=== PATIENT | female | born 1960 | race Caucasian/White ===

== ENCOUNTER 2016-11-29 14:31 | Observation (INO) | payer MEDICAID ==
[2016-11-29 14:57] LABS: BASOPHIL# 0.1 X 10^3uL (0.0-0.1); BASOPHILS 0.9 % (0.0-2.0); EOSINOPHILS 0.9 % (0.0-6.0); EOSINOPHILS# 0.1 X 10^3uL (0.0-0.4); HEMATOCRIT 48.3 % (36.0-48.0); HEMOGLOBIN 16.9 g/dL (12.0-16.0); LYMPHOCYTES 21.4 % (20.0-40.0); LYMPHOCYTES# 1.8 X 10^3uL (0.8-3.8); MEAN CELL VOLUME 94.2 fL (80.0-100.0); MEAN PLATELET VOLUME 8.3 fL (7.4-10.4); MONOCYTES 7.2 % (2.0-10.0); MONOCYTES# 0.6 X 10^3uL (0.2-1.0); NEUTROPHILS 69.6 % (54.0-75.0); NEUTROPHILS# 5.6 X 10^3uL (2.6-6.7); PLATELET COUNT 266 X 10^3uL (130-440); RED BLOOD COUNT 5.13 X 10^6uL (4.20-6.10); WHITE BLOOD COUNT 8.2 X 10^3uL (3.9-10.7)
[2016-11-29] MEDS ORDERED: NITROGLYCERIN 0.4 MG TAB.SUBL SUBLINGUAL ONE (14:57)
[2016-11-29 15:00] LABS: BLOOD UREA NITROGEN 18 mg/dL (7-17); CALCIUM 9.7 mg/dL (8.4-10.2); CHLORIDE 101 mmol/L (98-107); CREATININE 0.7 mg/dL (0.5-1.0); EST GLOMERULAR FILTRATION RATE > 60 mL/min; GLUCOSE 98 mg/dL (70-100); MAGNESIUM 2.2 mg/dL (1.6-2.3); SODIUM 140 mmol/L (137-145)
--- NOTE | 2016-11-29 15:02 | RADIOLOGY REPORT ---
HISTORY: High blood pressure. COMPARISON: None. TECHNIQUE: Single frontal view of the chest. FINDINGS: The lungs are clear. Cardiac silhouette is normal in size. Pulmonary vasculature is within normal limits. There are no pleural effusions. IMPRESSION: No acute cardiopulmonary disease. Final Electronic Signature: This report was electronically signed by West Be MD, FACR on 11/29/2016 3:00 PM. roldan /
[2016-11-29 15:20] LABS: TROPONIN I < 0.012 ng/mL (0.00-0.034)
[2016-11-29] MEDS ORDERED: LORazepam 1 MG TABLET ONE (15:27)
[2016-11-29] MEDS ORDERED: ACETAMINOPHEN 325 MG TABLET PO PRN (15:49)
[2016-11-29] MEDS ORDERED: HOME MEDICATION LIST NEEDED 1 EA EACH MC ONE (15:49)
[2016-11-29] MEDS ORDERED: LORazepam 2 MG/ML INJ IV PRN (15:53)
[2016-11-29] MEDS ORDERED: NITROGLYCERIN 0.4 MG TAB.SUBL SUBLINGUAL PRN (15:53)
[2016-11-29] MEDS ORDERED: ALPRAZolam 0.5 MG TABLET PO PRN (17:15)
[2016-11-29] MEDS ORDERED: ALBUTEROL HFA 1 INH INHALER INHALATION PRN (17:15)
--- NOTE | 2016-11-29 17:43 | ER NURSING DOCUMENTATION ---
Nurse's Notes [facility] Name:Lea Barber Age:56 yrs Sex:Female :1960 Arrival Date:11/29/2016 Time:14:31 BedTrauma-C Private MD: Diagnosis:Chest Pain;Anxiety Reaction Presentation: 11/29 14:42 Acuity: KERI 2 lp 14:43 Presenting complaint: Patient states: presented to clinic and sent to ER after lp complaints of chest tightness and new left BBB on EKG. Transition of care: Home. 14:43 Method Of Arrival: Private Vehicle lp 14:48 Notified ED Physician of patient's arrival and CC Mike Lynn notified. ke Triage Assessment: 14:56 General: Appears in no apparent distress, Behavior is anxious, appropriate for age. ke Pain: Denies pain. 14:57 EENT: No deficits noted. Neuro: No deficits noted. Level of Consciousness is awake, ke alert, Oriented to person, place, time, event. Cardiovascular: Capillary refill < 3 seconds Heart tones S1 S2 present. Respiratory: Airway is patent Trachea midline Respiratory effort is even, unlabored, Respiratory pattern is regular, symmetrical, Breath sounds are clear. GI: Abdomen is flat, non- distended Bowel sounds present X 4 quads. Abd is soft and non tender X 4 quads. : No deficits noted. Derm: Skin is intact, Skin is dry, Skin is pale. Musculoskeletal: Circulation, motion, and sensation intact Capillary refill < 3 seconds Range of motion intact in all extremities. Historical: - Allergies: SULFA (SULFONAMIDES); - Home Meds: 1. citalopram oral 2. Trazodone Oral 3. Bupropion Oral 4. Alprazolam Oral 5. calcium 6. biotin oral 7. flax seed oil 8. iron 9. MTV 10. Vit D3 11. Proair 12. Lidoderm 13. cyanocobalamin (vitamin B-12) oral - PMHx: DEPRESSION; ANXIETY; ASTHMA; OBESITY; Ankle Sprain - : Acute, Left (October 11, 2014); - PSHx: TONSILLECTOMY; ADENOIDS; TUBAL LIGATION; Gastric Bypass 7 years ago; - Tetanus: < 10 years. - Ebola Screening: : Patient negative for fever greater than or equal to 101.5 degrees Fahrenheit, and additional compatible Ebola Virus Disease symptoms. Patient denies exposure to infectious person. Patient denies travel to an Ebola-affected area in the 21 days before illness onset. No symptoms or risks identified at this time. . - Immunization history: Pneumococcal vaccine status is unknown, Flu Vaccine unknown. - Social history: Smoking status: Patient uses tobacco products, light tobacco smoker. Screenin:59 Infectious Disease Risk None. Abuse screen: Denies threats or abuse. Denies injuries ke from another. Nutritional screening: No deficits noted. Assessment: 14:58 See Triage Assessment done by same RN. ke 15:18 Reassessment: Patient states feeling better. Pt. states she still feels anxious but ke chest tightness is improved. She is drumming her fingers and fidgeting, Ativan ordered and given. No other change in assessment.. Vital Signs: 14:44 BP 184 / 104; Pulse 101; Resp 20; Pulse Ox 90% on R/A; Weight 74.39 kg; Height 5 ft. 4 lp in. (162.56 cm); 14:49 Pulse 96 MON; Resp 24; Temp 97.8; Pulse Ox 94% on 2 lpm NC; Pain 0/10; ke 14:52 BP 147 / 100 (auto/); ke 15:03 BP 125 / 81; Pulse 102; Resp 18; Pulse Ox 94% on R/A; Pain 0/10; ke 15:29 Pulse 101 MON; Resp 18; Pulse Ox 97% on 2 lpm NC; Pain 0/10; ke 15:30 BP 133 / 91 (auto/); ke 16:06 BP 156 / 70 (auto/); ke 16:09 Pulse 88 MON; Resp 22; Pulse Ox 95% on 2 lpm NC; Pain 0/10; ke 16:30 BP 150 / 78 (auto/); ke 16:34 Pulse 96 MON; Resp 23; Pulse Ox 95% on 2 lpm NC; Pain 0/10; ke 17:01 BP 145 / 80 (auto/); ke 17:04 Pulse 97 MON; Resp 19; Pulse Ox 92% on 2 lpm NC; Pain 0/10; ke 17:30 BP 151 / 81 (auto/); ke 17:34 Pulse 87 MON; Resp 16; Pulse Ox 90% ; ke 14:44 Body Mass Index 28.15 (74.39 kg, 162.56 cm) lp 15:03 Feeling less chest pressure now ke ED Course: 14:32 Patient arrived in ED. am1 14:33 Emmett Mckeon MD is Attending Physician. adelaide 14:42 Faith Diaz, RN is Primary Nurse. lp 14:42 Triage completed. lp 14:49 Port Xray Completed. tt 14:52 CHEST; SINGLE VIEW [id number] In Process Unspecified. EDMS 14:57 Notified ED Physician of patient's arrival and chief complaint. Dr. Mckeon notified. ke 14:59 Inserted saline lock: 20 gauge in right forearm and blood collected. Oxygen Oxygen ke administration via nasal cannula @ 2L/min. 14:59 Valuables Remains with patient Patient has correct armband on for positive ke identification. Placed in gown. Bed in low position. Call light in reach. Side rails up X 1. Adult w/ patient. 15:05 EKG attached lp 15:06 EKG attached lp 15:46 Pippa Nguyen DO is Admitting Physician. adelaide 17:07 Awaiting RN assignment on floor. ke Administered Medications: 14:45 Drug: Nitroglycerin 0.4 mg; Route: Sublingual; ke 14:50 Drug: Aspirin 325 mg; Route: PO; ke 15:17 Follow up: Response: No change in condition ke 14:50 Drug: Nitroglycerin 0.4 mg; Route: Sublingual; ke 15:18 Follow up: Response: Blood pressure is lowered ke 15:17 Drug: Ativan 1 mg; Route: PO; ke 15:46 Follow up: Response: Anxiety decreased ke Intake: 15:48 PO: 100ml (Water); Total: 100ml. ke Outcome: 15:46 Decision to Admit by Provider. adelaide 17:39 Admitted to Med/surg accompanied by nurse, via wheelchair, with oxygen. ke 17:39 Condition: improved 17:39 Report given to Kristyn RN 17:39 Discharge instructions given to Instructed on need to admit 17:43 Patient left the ED. ke Signatures: Dispatcher [employer] EDNC Faith Diaz, RN RN Emmett Nascimento MD MD jm Moehring, Addie, Reg Reg am1 Juliette Lamas tt Milly Ritchie RN RN ke
--- NOTE | 2016-11-29 17:43 | ER PHYSICIAN DOCUMENTATION ---
Physician Documentation [facility] Name:Lea Barber Age:56 yrs Sex:Female :1960 Arrival Date:11/29/2016 Time:14:31 BedTrauma-C Private MD: Emmett Wilson Disposition: 11/29/16 15:46 Admit ordered for Pippa Nguyen. Preliminary diagnosis are Chest Pain, Anxiety Reaction. - Bed requested for Medical/Surgical. - Condition is Fair. - Problem is new. - Symptoms have improved. 23 HR OBS Yes HPI: 11/29 15:00 This 56 yrs old Female presents to ER via Private Vehicle with complaints of jm High Blood Pressure. 15:00 The patient has elevated blood pressure and discovered this at a physician's office, jm sent to clinic for eval of elevated BP, then sent to ER b/c pt had a LBBB and c/o of some chest tightness. . Onset: The symptom(s)/episode began/occurred today. Modifying factors: The symptoms are aggravated by stress, anxiety . Associated signs and symptoms: Pertinent positives: anxiety, Pertinent negatives: dizziness, dyspnea, headache, lightheadedness, nausea, visual changes, vomiting, weakness. Severity of symptoms: At its worst the blood pressure was 185 mm Hg. The patient has not experienced similar symptoms in the past. The patient has been recently seen by a physician: the patient's primary care provider, with similar presenting complaints, and was sent to the [facility] Emergency Department for further evaluation. As above. Historical: - Allergies: SULFA (SULFONAMIDES); - Home Meds: 1. citalopram oral 2. Trazodone Oral 3. Bupropion Oral 4. Alprazolam Oral 5. calcium 6. biotin oral 7. flax seed oil 8. iron 9. MTV 10. Vit D3 11. Proair 12. Lidoderm 13. cyanocobalamin (vitamin B-12) oral - PMHx: DEPRESSION; ANXIETY; ASTHMA; OBESITY; Ankle Sprain - : Acute, Left (October 11, 2014); - PSHx: TONSILLECTOMY; ADENOIDS; TUBAL LIGATION; Gastric Bypass 7 years ago; - Tetanus: < 10 years. - Ebola Screening: : Patient negative for fever greater than or equal to 101.5 degrees Fahrenheit, and additional compatible Ebola Virus Disease symptoms. Patient denies exposure to infectious person. Patient denies travel to an Ebola-affected area in the 21 days before illness onset. No symptoms or risks identified at this time. . - Immunization history: Pneumococcal vaccine status is unknown, Flu Vaccine unknown. - Social history: Smoking status: Patient uses tobacco products, light tobacco smoker. ROS: 15:11 Constitutional: Negative for fatigue, fever, malaise. jm 15:11 ENT: Negative for nasal discharge, rhinorrhea, sinus pain, sore throat. 15:11 Cardiovascular: Positive for chest pain, Negative for orthopnea, palpitations, paroxysmal nocturnal dyspnea. 15:11 Respiratory: Negative for cough, sputum production. 15:11 Abdomen/GI: Negative for abdominal pain, nausea, vomiting, diarrhea. 15:11 MS/extremity: Negative for swelling, tenderness. 15:11 Skin: Negative for puncture, rash, swelling. 15:11 Neuro: Negative for dizziness, acute changes. 15:11 Psych: Positive for anxiety, Negative for alcohol dependence. 15:11 Endocrine: 15:11 All other systems are negative. Exam: 15:12 Constitutional: The patient appears alert, awake, comfortable. jm 15:12 Constitutional: The patient appears anxious. 15:12 Eyes: Periorbital structures: appear normal, Extraocular movements: intact throughout. 15:12 ENT: Mouth: is normal, Voice: is normal. 15:12 Neck: Thyroid: appears normal, Trachea: is midline with no obvious abnormalities. 15:12 Chest/axilla: Inspection: normal, Palpation: is normal. 15:12 Cardiovascular: Rate: tachycardic, Rhythm: regular. 15:12 Respiratory: Respirations: normal, Breath sounds: are normal. 15:12 Back: Exam negative for pain, CVA tenderness, is absent. 15:12 Musculoskeletal/extremity: DVT Exam: No signs of deep vein thrombosis. Calves: are non-tender, have equal circumference. 15:12 Neuro: Orientation: is normal, Mentation: is normal, Memory: is normal. 15:12 Psych: Behavior/mood is pleasant, cooperative, anxious, Affect is calm. Vital Signs: 14:44 BP 184 / 104; Pulse 101; Resp 20; Pulse Ox 90% on R/A; Weight 74.39 kg; Height 5 ft. 4 lp in. (162.56 cm); 14:49 Pulse 96 MON; Resp 24; Temp 97.8; Pulse Ox 94% on 2 lpm NC; Pain 0/10; ke 14:52 BP 147 / 100 (auto/); ke 15:03 BP 125 / 81; Pulse 102; Resp 18; Pulse Ox 94% on R/A; Pain 0/10; ke 15:29 Pulse 101 MON; Resp 18; Pulse Ox 97% on 2 lpm NC; Pain 0/10; ke 15:30 BP 133 / 91 (auto/); ke 16:06 BP 156 / 70 (auto/); ke 16:09 Pulse 88 MON; Resp 22; Pulse Ox 95% on 2 lpm NC; Pain 0/10; ke 16:30 BP 150 / 78 (auto/); ke 16:34 Pulse 96 MON; Resp 23; Pulse Ox 95% on 2 lpm NC; Pain 0/10; ke 17:01 BP 145 / 80 (auto/); ke 17:04 Pulse 97 MON; Resp 19; Pulse Ox 92% on 2 lpm NC; Pain 0/10; ke 17:30 BP 151 / 81 (auto/); ke 17:34 Pulse 87 MON; Resp 16; Pulse Ox 90% ; ke 14:44 Body Mass Index 28.15 (74.39 kg, 162.56 cm) lp 15:03 Feeling less chest pressure now ke MDM: 14:33 Patient medically screened. jm 14:58 ED course: Spoke w Dr. Prabhakar in cards. He said the most common cause of a LBBB is HTN, jm which pt certainly has. Pt states she gets CP when she get anxious. Pt was just at her counselor's office to get Xanax refilled as she had been out for a day. Pt does not look like an DE as a glance. Dr. Prabhakar agrees that pt can get ASA and worked up in EP for this. We will admit for serial enzymes and Stress ECHO in the AM. . 15:05 EKG attached lp 15:06 EKG attached lp 15:42 Differential diagnosis: hypertensive crisis, HTN emergency, DE, new LBBB, NSTEMI, jm angina. Data reviewed: vital signs, nurses notes, old medical records, lab test result(s), EKG, radiologic studies, and as a result, I will admit patient. Test interpretation: by ED physician or midlevel provider: plain radiologic studies, ECG. Counseling: I had a detailed discussion with the patient and/or guardian regarding: the historical points, exam findings, and any diagnostic results supporting the discharge/admit diagnosis, lab results, radiology results, the need for further work-up and treatment in the hospital. ECG:. Medication response: The patient's symptoms have improved, nitro and ativan. Physician consultation: Pippa Nguyen DO regarding admission, and will see patient later today. Admission orders: after a detailed discussion of the patient's condition and case, the admit orders are written by me. 11/29 15:04 Order name: CBC AUTO DIF, MDIF/RMOR IF IND; Complete Time: 15:44 [facility] 11/29 15:20 Order name: BASIC METABOLIC PANEL; Complete Time: 15:44 [facility] 11/29 15:20 Order name: MAGNESIUM; Complete Time: 15:44 [facility] 11/29 15:20 Order name: TROPONIN I; Complete Time: 15:44 [facility] 11/29 21:11 Order name: TROPONIN I [facility] 11/30 03:29 Order name: CBC AUTO DIF, MDIF/RMOR IF IND [facility] 11/30 03:45 Order name: COMPREHENSIVE METABOLIC PANEL [facility] 11/30 03:45 Order name: LIPID PANEL [facility] 11/30 04:07 Order name: TROPONIN I [facility] 11/30 04:52 Order name: THYROID STIMULATING HORMONE [facility] 11/29 14:52 Order name: CHEST; SINGLE VIEW [id number] [facility] 11/29 15:04 Order name: CHEST; SING[place]IEW [id number]; Complete Time: 15:11 [facility] 11/29 14:40 Order name: 12-lead EKG; Complete Time: 14:43 11/29 14:40 Order name: Iv Saline Lock; Complete Time: 15:01 11/29 14:40 Order name: Place Patient On Monitor; Complete Time: 15:01 11/29 14:40 Order name: Pulse Ox Continuous; Complete Time: 15: 11/29 15:20 Order name: Oxygen; Complete Time: 15:20 ke EC:42 Rhythm is regular with Left bundle branch block. [place] interval is normal. QRS interval is jm normal. QT interval is normal. No Q waves. T waves are Normal. No ST changes noted. Dispensed Medications: 14:45 Drug: Nitroglycerin 0.4 mg; Route: Sublingual; ke 14:50 Drug: Aspirin 325 mg; Route: PO; ke 15:17 Follow up: Response: No change in condition ke 14:50 Drug: Nitroglycerin 0.4 mg; Route: Sublingual; ke 15:18 Follow up: Response: Blood pressure is lowered ke 15:17 Drug: Ativan 1 mg; Route: PO; ke 15:46 Follow up: Response: Anxiety decreased ke Signatures: Faith Diaz RN RN lp Meyer, John, MD MD jm Evens, Kerry, RN RN ke
[2016-11-29] MEDS ORDERED: ENOXAPARIN SODIUM 100 MG/ML SYR SUBCUT SCH (18:00)
[2016-11-29] MEDS ORDERED: ENALAPRILAT DIHYDRATE 1.25 MG/ML VIAL IV PRN (19:42)
[2016-11-29] MEDS: metoprolol SUCC ER 25 MG TABLET PO SCH (20:34)
[2016-11-29] MEDS ORDERED: traZODone HCL 50 MG TABLET PO SCH (21:00)
[2016-11-30 03:26] LABS: BASOPHIL# 0.1 X 10^3uL (0.0-0.1); BASOPHILS 1.1 % (0.0-2.0); EOSINOPHILS 2.4 % (0.0-6.0); EOSINOPHILS# 0.2 X 10^3uL (0.0-0.4); HEMATOCRIT 45.4 % (36.0-48.0); HEMOGLOBIN 15.3 g/dL (12.0-16.0); LYMPHOCYTES 33.5 % (20.0-40.0); LYMPHOCYTES# 2.1 X 10^3uL (0.8-3.8); MEAN CELL VOLUME 94.9 fL (80.0-100.0); MEAN CORPUS. HGB CONCENTRATION 33.6 g/dL (32.0-36.0); MEAN CORPUSCULAR HEMOGLOBIN 31.9 pg (29.0-35.0); MEAN PLATELET VOLUME 8.3 fL (7.4-10.4); MONOCYTES 9.4 % (2.0-10.0); MONOCYTES# 0.6 X 10^3uL (0.2-1.0); NEUTROPHILS 53.6 % (54.0-75.0); NEUTROPHILS# 3.3 X 10^3uL (2.6-6.7); PLATELET COUNT 237 X 10^3uL (130-440); RED BLOOD COUNT 4.78 X 10^6uL (4.20-6.10); RED CELL DISTRIBUTION WIDTH 13.4 % (11.5-14.5); WHITE BLOOD COUNT 6.3 X 10^3uL (3.9-10.7)
[2016-11-30 03:33] VITALS: RESP 16
[2016-11-30 03:42] LABS: A/G RATIO 1.4; ALBUMIN 3.8 g/dL (3.5-5.0); ALKALINE PHOSPHATASE 74 U/L (38-126); ALT 34 U/L (9-52); AST 25 U/L (14-36); BILIRUBIN, TOTAL 0.8 mg/dL (0.2-1.3); BLOOD UREA NITROGEN 23 mg/dL (7-17); CALCIUM 9.1 mg/dL (8.4-10.2); CALCULATED LDL 58 mg/dL; CHLORIDE 103 mmol/L (98-107); CHOL/HDL RATIO 2 (<4); CHOLESTEROL 185 mg/dL; CREATININE 0.9 mg/dL (0.5-1.0); EST GLOMERULAR FILTRATION RATE > 60 mL/min; GLUCOSE 96 mg/dL (70-100); HDL CHOLESTEROL 101 mg/dL; POTASSIUM 4.5 mmol/L (3.5-5.1); SODIUM 140 mmol/L (137-145); TOTAL PROTEIN 6.6 g/dL (6.3-8.2); TRIGLYCERIDES 132 mg/dL; VLDL CHOLESTEROL 26 mg/dL (<30)
[2016-11-30 04:06] LABS: TROPONIN I < 0.012 ng/mL (0.00-0.034)
[2016-11-30 04:51] LABS: THYROID STIMULATING HORMONE 2.22 uIU/mL (0.47-4.68)
--- NOTE | 2016-11-30 06:53 | HISTORY & PHYSICAL ---
DATE OF ADMISSION: 11/29/16 ATTENDING PHYSICIAN: Pippa Nguyen MD HISTORY OF PRESENT ILLNESS: The patient is a 56-year-old female whom I have not seen for over a year in clinic, who was a [place] this morning getting her medication refills and was noted to have an elevated blood pressure. They recommended that she follow up with her primary care physician to further evaluate. Patient came to clinic and was triaged. She denied any symptoms of concern at that time and blood pressure was noted to be 150s/90s. She was made an appointment for later that day. When I evaluated the patient in clinic this afternoon; however, her blood pressure was 164/85, but she did state that she was having some chest tightness that went up into her neck. Patient also mentioned that she had some flip popping and palpitation symptoms last week, which she just associated with her anxiety. Patient did have an EKG performed in the clinic which showed a new left bundle branch block and unfortunately I do not have a baseline EKG for the patient so she was transitioned to the Emergency Room for more immediate cardiac workup. During her stay in the Emergency Room, she was noted to have some initially elevated blood pressures 184/104 which did improve with 2 doses of Nitroglycerin. The Emergency Department physician did speak with on-call Cardiology and with the negative troponin and otherwise stable symptoms, they recommended that she be monitored here and be set up for a stress test in the morning so I was asked to admit her for observation this evening. PAST MEDICAL HISTORY 1. Anxiety and depression which she has managed at [facility]. 2. Insomnia. 3. She has a history of mild asthma which patient does admit that she has been using her inhaler more frequently at work. 4. History of gastric bypass and B12 deficiency not currently on supplementation. 5. Neck pain. 6. History of skin cancer. PAST SURGICAL HISTORY 1. Gastric bypass in 2007. 2. Tonsillectomy. 3. Tubal ligation. 4. Cataracts. 5. Skin cancer. SOCIAL HISTORY: Patient is . She has children here in town. She is currently a smoker and she has been working at [employer]. She lives alone with a dog. FAMILY HISTORY: Father with diabetes mellitus. Mother with history of fibromyalgia and breast cancer. Sister is related to sepsis and hepatitis C. MEDICATIONS Citalopram 20 mg daily. Trazadone 100 mg 1-2 p.o. q.h.s. Bupropion XL 150 mg. Alprazolam 1 mg as needed. Pro Air 2 puffs inhaled every 4 hours as needed. ALLERGIES: Sulfa. REVIEW OF SYSTEMS GENERAL: Patient states that she had been feeling stressed, some increased anxiety, mainly related to her current job she does not like and in fact did have a new job interview this afternoon and was likely nervous for this. HEENT: She denies any headache. No visual changes. No sore throat. CARDIOVASCULAR: Patient does state that she had chest tightness, this is now improved, and she admits to some palpitations and abnormal pressure sensations on and off for the last week. She also states that prior to her gastric bypass, she was on multiple medications for hypertension, and has been able to discontinue these with weight loss. RESPIRATORY: Patient has mild asthma, which she admits to having to use her inhaler. More frequently recently related to exertion at work. Denies any shortness of breath right now. ABDOMEN: She denies any nausea, vomiting or diarrhea. MUSCULOSKELETAL: Patient has some chronic intermittent neck pain. She also has pain in her left leg from her hip down to her knee. Patient states that she was going to make a follow up visit for this. EXTREMITIES: She denies any swelling. PSYCHIATRIC: Patient is anxious. She said her mood has been somewhat stable but she has had increased related to job and work stressors. PHYSICAL EXAMINATION VITAL SIGNS: Blood pressure 184/104 in the Emergency Room down to 156/70, pulse 88, respiratory rate 22, 95% on 2 liters. GENERAL: Patient appears anxious but in no acute distress. She was somewhat tearful when I mentioned to her that she was going to be taken to the Emergency Room and again tearful when I discussed with her that we were going to admit her overnight for observation. HEENT: Patient wears glasses. Conjunctivae are clear. Oropharynx is moist mucous membranes. NECK: No jugular venous distention noted. RESPIRATORY: Clear to auscultation bilaterally. Do not appreciate any wheezing. CARDIAC: Patient does have S1, S2, question of prominent S2 versus other irregularity, this does seem to be slightly different than her previous exam, although of note, patient has not been seen for over a year. ABDOMEN: Soft, nontender, nondistended. EXTREMITIES: No edema. Moves arms and legs equally. PSYCHIATRIC: Alert and oriented x3, anxious but reasonable and easily calmed. LABORATORY: CBC which showed a white count of 8.2, hemoglobin and hematocrit 16.9 and 48.3, platelets 266. A BMP showed sodium 140, potassium 4.0, chloride 101, bicarb 26, BUN 18, creatinine 0.7, glucose of 98, calcium 9.7, magnesium 2.2, troponin at 14:40 was less than 0.012. EKG showed a new left bundle branch block. Chest x-ray showed no acute changes. In the Emergency Room shew as provided with nitroglycerin 0.4 mg x1, aspirin 325 and Ativan 1 mg. ASSESSMENT/PLAN: This is a 56-year-old female with a history of anxiety and depression, presented to clinic with hypertension, chest pressure and found to have an abnormal EKG, transitioned to further workup in the Emergency Room and now here is here for hospital admission. 1. Abnormal EKG. Patient was found to have new left bundle branch block with some questionable ischemic changes, although hard to determine with her new left bundle. Patient did have chest tightness, thus was transitioned to the Emergency Room. Initial troponin was negative, and she denies any significant chest tightness at this time. Emergency Room physician did speak with on-call Cardiology and was recommended further observation admission, rule out ACS and stress echocardiogram with Cardiology consult tomorrow. I did review with patient in detail, that if any changes, she may need more urgent cardiac intervention. Was given aspirin and dose of lovenox. Does have Nitroglycerin available, and is currently on oxygen. 2. Chest tightness: This could be most likely multifactorial including her underlying anxiety. Denies any symptoms at this time, but has been given Ativan in the Emergency Room. Will continue to rule out ACS and monitor for any return of symptoms. 3. Hypertension: Patient with no hypertensive history in our clinic, although prior to her gastric bypass, she admits today that she was on 3-4 medications to control blood pressure. She has had about a 15 pound weight gain since her low of gastric bypass, which could be enough to cause some need for antihypertensive. Will continue to monitor and likely need to transition for some home medications. Await Cardiology input. 4. Anxiety: Patient is managed by [facility] in regards to multiple psychiatric medications. Will continue these while she is here, except transition Alprazolam for Lorazepam as needed. 5. Asthma: Patient does have history of asthma and admits to increase use of her inhaler. She also is a smoker. Will need further evaluation, discussion as an outpatient. 6. Leg pain: Patient again nonchalantly brought this up during review of systems. I have recommended her to follow up with me in clinic. Of note, patient did have a past history of positive health screening for positive SUNNY, but had a negative arterial ultrasound in 2013. 7. Polycythemia: This could be multifactorial including dehydration or her underlying respiratory issues. Her hemoglobin and hematocrit was normal in April 2015, which is the last CBC I have available for patient. Will repeat in the morning to monitor. May need further pulmonary workup. 8. Deep vein thrombosis prophylaxis: Patient is somewhat low risk. Has been given an aspirin in the Emergency Room. Will use SCDs at this time. 9. Disposition: Pending further cardiac monitoring and workup. 10. Transition of care: I have admitted patient tonaugust. I will transition care to Dr. Elisha kim, but I am out of the office tomorrow and thankfully Dr. Hoyos or Dr. Tello will help cover patient for me. Copies to: Dewey MANZANARES
--- NOTE | 2016-11-30 08:40 | DC SUMMARY: IM Note ---
Discharge Summary: IM/Peds Provider: Date of Admission: 11/29/16 Admitting Provider: CHRISTY MENDOSA Attending Provider: CHRISTY MENDOSA Discharging Provider: BROOKS ONEIL MD Primary Care Provider: Discharge Date: 11/30/16 - Diagnosis (1) Atypical chest pain Status: Acute (2) LBBB (left bundle branch block) Status: Acute (3) Hypertension, benign Status: Acute (4) Asthma, mild intermittent, well-controlled Status: Acute (5) Depression, controlled Status: Acute (6) Anxiety Status: Acute Hospital Course: See history and physical. Admitted for atypical chest pain with left bundle branch block on EKG. No further chest pain after admission, and her discomfort was typical for her anxiety. No exertional discomfort. Cardiac enzymes negative times 3. EKG without change. Seen by cardiology. Echocardiogram done. Without high risk factors, chemical stress nuclear study can be done in the outpatient setting. Precautions were reviewed. She will be discharged on low-dose aspirin, metoprolol. She will continue with her psychiatric medications. She will return to the emergency department if further chest discomfort. With regard to other items in the differential diagnosis, chest x-ray negative for focal or acute process. No symptoms of infection. Presentation is not consistent with pulmonary embolus. Smoking cessation has been recommended. Time spent discussing smoking cessation with patient: 3 to 10 minutes - Time Spent with Patient Total time spent providing and/or coordinating discharge services: Time with patient DS: Less than 30 minutes Discharge - Patient/Caregiver Discharge Instructions Activity Level: Day-to-day activities. No strenuous exercise. Diet: Cardiac. Post gastric bypass. Additional Instructions: Chemical nuclear stress test ordered by cardiology for next week. Minimize smoking, and quit as soon as you are able. Follow up: Doug IVORY [Other] - 12/04/16 12:15 pm (For Chemical Stress Test on 12/04 @ 12:15 Go to main it desktop support technician at hospital to check-in.) CHRISTY MENDOSA DO [Primary Care Provider] - 12/14/16 1:30 pm KJ RAYO MD [MD] - 7 Days Overall discharge status: patient is progressing back to baseline Print Language: CITIZEN OF [place] Home Medications: metoprolol SUCC ER [Toprol Xl*] 25 mg PO DAILY #30 tablet Care Plan Goals: Call 911 Call 911 if any of these occur: * A change in the type of pain: if it feels different, becomes more severe, lasts longer, or begins to spread into your shoulder, arm, neck, jaw or back * Shortness of breath or increased pain with breathing * Weakness, dizziness, or fainting * Rapid heart beat * Crushing sensation in your chest When to seek medical advice Call your healthcare provider right away if any of the following occur: * Cough with dark colored sputum (phlegm) or blood * Fever of 100.4F (38C) or higher, or as directed by your healthcare provider * Swelling, pain or redness in one leg * Shortness of breath Disposition: HOME, SELF-CARE Discharge Summary Data - Medication History Medication History: Home Medications ALPRAZolam [Xanax*] 1 mg PO TID PRN 11/29/16 Albuterol Hfa [Proventil Inhaler*] 1 puff INHALATION Q4H PRN 11/29/16 Biotin 1,000 mcg PO DAILY 11/29/16 Calcium Carbonate [Calcium] 1 tab PO DAILY 11/29/16 Cholecalciferol [Vitamin D*] 1,000 unit PO DAILY 11/29/16 Citalopram Hydrobromide [Celexa*] 20 mg PO DAILY 11/29/16 Cyanocobalamin [Vitamin B-12*] 1,000 mcg IM [id number] 11/29/16 Ferrous Sulfate [Ferrous Sulfate*] 1 tab PO DAILY 11/29/16 Flaxseed Oil 1,000 mg PO DAILY 11/29/16 Lidocaine 5% [Lidoderm 5%*] 1 patch TOPICAL DAILY 11/29/16 Multivitamins,Therapeutic [Thera Multivitamin*] 1 tab PO DAILY 11/29/16 buPROPion HCL [Wellbutrin Xl] 150 mg PO DAILY 11/29/16 traZODone HCL [Trazodone HCl*] 100 - 200 mg PO HS 11/29/16 Acetaminophen [Tylenol*] 650 mg PO Q6H PRN #0 tablet 11/30/16 aspirin EC [Aspirin EC*] 81 mg PO DAILY tablet 11/30/16 metoprolol SUCC ER [Toprol Xl*] 25 mg PO DAILY #30 tablet 11/30/16 Inpatient Medications 11/29/16 17:15 ALPRAZolam [Xanax] 1 mg PO TID PRN Albuterol Hfa [Proventil Hfa Inhaler] 1 - 2 inh INHALATION Q4H PRN 11/29/16 19:42 Enalaprilat Dihydrate [Vasotec] 0.625 mg IV Q6H PRN 11/29/16 20:00 metoprolol SUCC ER [topROL XL] 25 mg PO DAILY 11/29/16 21:00 traZODone HCL [Desyrel] 100 - 200 mg PO HS 11/30/16 09:00 Citalopram Hydrobromide [CeleXA] 20 mg PO DAILY aspirin EC [Ecotrin 81 mg] 81 mg PO DAILY buPROPion XL DAILY [Wellbutrin Xl Daily] 150 mg PO DAILY Procedures and tests throughout hospitalization: Completed Lab Orders 11/29/16 20:40 TROPONIN I [CHEM] Stat 11/30/16 03:03 CBC AUTO DIF, MDIF/RMOR IF IND [HEM] AMDRAW COMPREHENSIVE METABOLIC PANEL [CHEM] AMDRAW LIPID PANEL [CHEM] AMDRAW TROPONIN I [CHEM] Routine TSH [THYROID STIMULATING HORMONE] [CHEM] AMDRAW Pending Orders 11/29/16 17:01 VTE Prophylaxis Scoring/ Ordering Routine Sequential Compression Device WHILE IN BED 11/29/16 17:15 ALPRAZolam [Xanax] 1 mg PO TID PRN Albuterol Hfa [Proventil Hfa Inhaler] 1 - 2 inh INHALATION Q4H PRN 11/29/16 18:00 Smoking Cessation Teaching by RT [RT] Routine 11/29/16 19:42 Enalaprilat Dihydrate [Vasotec] 0.625 mg IV Q6H PRN 11/29/16 20:00 metoprolol SUCC ER [topROL XL] 25 mg PO DAILY 11/29/16 21:00 traZODone HCL [Desyrel] 100 - 200 mg PO HS 11/30/16 09:00 Citalopram Hydrobromide [CeleXA] 20 mg PO DAILY aspirin EC [Ecotrin 81 mg] 81 mg PO DAILY buPROPion XL DAILY [Wellbutrin Xl Daily] 150 mg PO DAILY Labs on day of discharge: Labs from last 24 hours 11/30/16 11/29/16 03:03 20:40 WBC 6.3 RBC 4.78 Hgb 15.3 Hct 45.4 MCV 94.9 MCH 31.9 MCHC 33.6 RDW 13.4 Plt Count 237 MPV 8.3 Neutrophils % 53.6 L Lymphocytes % 33.5 Eosinophils % 2.4 Basophils % 1.1 Neutrophils # 3.3 Lymphocytes # 2.1 Monocytes 9.4 Monocytes # 0.6 Eosinophils # 0.2 Basophils # 0.1 Sodium 140 Potassium 4.5 Chloride 103 Carbon Dioxide 29 BUN 23 H Creatinine 0.9 GFR Calculation > 60 Glucose 96 Calcium 9.1 Total Bilirubin 0.8 D AST 25 ALT 34 Alkaline Phosphatase 74 Troponin I < 0.012 < 0.012 Total Protein 6.6 Albumin 3.8 Albumin/Globulin Ratio 1.4 Triglycerides 132 Cholesterol 185 LDL Cholesterol, Calc 58 VLDL Cholesterol, Calc 26 HDL Cholesterol 101 Cholesterol/HDL Ratio 2 TSH 2.22 IM: Discharge Physical Exam - I&O/Vital Signs I&O: Intake & Output 11/29/16 11/30/16 11/30/16 21:59 05:59 13:59 Intake Total 150 Output Total 570 Balance -420 Weight 72.575 kg Intake: Oral 150 Output: Urine 570 Other: Urine Appearance Clear Urine Color Yellow Voiding Method Toilet Toilet # Voids 2 Vital Signs: Last Vital Signs Temp 36.6 C 11/30/16 06:13 Pulse 74 11/30/16 06:13 Resp 16 11/30/16 06:13 BP 110/71 11/30/16 06:13 Pulse Ox 97 11/30/16 06:13 Oxygen Flow Rate 1 Oxygen Delivery Method Nasal Cannula - Constitutional General appearance: Present: other (overweight) - Head Head exam: Present: normal inspection - Eye Eye exam: Present: EOMI - ENT ENT exam: Present: mucous membranes moist - Neck Neck exam: Present: normal inspection - Respiratory Respiratory exam: Present: decreased breath sounds, CTAB. Absent: rales, rhonchi, wheezes - Cardiovascular Cardiovascular exam: Present: RRR, systolic murmur (crescendo/decrescendo, aortic area). Absent: S3, S4 - GI/Abdominal GI/Abdominal exam: Present: normal bowel sounds. Absent: organomegaly, tenderness - Extremities Exam Extremities exam: Absent: calf tenderness, Marco Antonio's Sign, edema - Neurological Exam Neurological exam: Present: oriented X3 - Psychiatric Psychiatric exam: Present: anxious (ild). Absent: depressed - Skin Skin exam: Absent: rash - Allied Health Notes Allied health notes reviewed: nursing
[2016-11-30] MEDS ORDERED: CITALOPRAM HYDROBROMIDE 10 MG TABLET PO SCH (09:00)
[2016-11-30] MEDS ORDERED: buPROPion XL DAILY 150 MG TABLET PO SCH (09:00)
[2016-11-30] MEDS: metoprolol SUCC ER 25 MG TABLET PO SCH (10:43)
[2016-11-30 10:52] VITALS: BP 142/83; PULSE 88; TEMP 98.4; O2SAT 95
--- NOTE | 2016-11-30 14:38 | CONSULTATION ---
DATE OF CONSULTATION: 11/30/16 REASON FOR CONSULTATION: Abnormal EKG. CONSULTING PHYSICIAN: Emmett Mckeon MD CONSULTING THREAD REELER: Sully Montalvo MD HISTORY OF PRESENT ILLNESS: This is a 56-year-old female with a new diagnosis of hypertension, was admitted for an abnormal EKG showing a left bundle branch block. She was in the process of getting her medications refilled when it was noted that she had hypertension and was asked to follow up with her primary care physician. There she mentioned some occasional right neck and chest tightness when her blood pressure is high. She is also under increased stress and has some anxiety, which has been fairly chronic for her and she does note tightness in her chest when she is feeling anxious. This has not increased in frequency or duration or intensity. Last week she had an episode where she felt fluttering in her chest which lasted for less than 1 minute and was associated with some cold sweats. She denies chest pain. She has chronic dyspnea on exertion after going up about a flight of stairs. She sleeps on an incline and she declines orthopnea, paroxysmal nocturnal dyspnea, lower extremity edema. Her only lightheadedness is positional. PAST MEDICAL HISTORY 1. Syncope. 2. Hypertension. 3. Asthma. 4. Gastric bypass. 5. Patient denies any history of diabetes, dyslipidemia, prior heart disease, clotting disorder, stroke. OUTPATIENT MEDICATIONS: Reviewed and she is not on any cardiac medications. ALLERGIES: Sulfa. SOCIAL HISTORY: She currently smokes but is down to 2 cigarettes daily. Her last fall. She has 2 caffeinated beverages in the morning, and then about a quart of tea throughout the day. She has social alcohol intake and in social settings may have 5 alcohol beverages. FAMILY HISTORY: Her father had diabetes and her mother had breast cancer. A paternal grandfather had a myocardial infarction. REVIEW OF SYSTEMS GENERAL: Denies fatigue but has had increased stress. HEENT: Denies headaches. EYES: Denies blurry vision. RESPIRATORY: Denies cough. GI: Denies abdominal pain. : Denies dysuria. MUSCULOSKELETAL: Reports neck pain. NEUROLOGIC: Denies numbness. HEME: Denies easy bruising. ENDOCRINE: Denies temperature changes. PSYCH: Feels anxious. PHYSICAL EXAMINATION VITAL SIGNS: Blood pressure 110/71, heart rate 84, oxygen saturation 97%. GENERAL: Well-nourished, well-developed in no acute distress. Speaking in complete sentences without difficulty. HEENT: Normal. EYES: Normal. NECK: JVP 8 cm. No carotid bruits. Normal thyroid. HEART: Regular rate and rhythm. No murmurs, rubs or gallops. LUNGS: Clear to auscultation bilaterally. ABDOMEN: Nondistended. EXTREMITIES: No edema. 2+ radial pulses. Normal tone. SKIN: No rashes. NEURO: Alert. LABORATORY DATA: Hemoglobin 15.3, sodium 140, potassium 4.5, creatinine 0.9, troponin undetectable x3. Total cholesterol 185. LDL 58. HDL 101. Triglycerides 132. TSH 2.22. ELECTROCARDIOGRAM: I reviewed a couple of EKGs, both of which show normal sinus rhythm with a left bundle branch block. CHEST X-RAY: No acute disease. IMPRESSION 1. Left bundle branch block, no prior EKGs to compare. 2. Hypertension, new. 3. Chest pain, atypical. PLAN: Her symptoms are atypical for obstructive coronary artery disease. Her cardiac risk factor includes current smoking and new hypertension. She is not having an acute coronary syndrome, and she has had undetectable troponins x3. We will plan for an echocardiogram today, but will plan to do a stress test as an outpatient. With the left bundle branch block, she will require a chemical nuclear stress test to avoid false positives. I have arranged for this to be done on December 04, with a check in time of 12:15, and I will follow up with her in clinic later next week. If she has recurrent symptoms, she is to present to the Emergency Room for further evaluation and treatment. From a cardiac standpoint, as long as her echocardiogram shows no significant abnormalities like a depressed ejection fraction, she can be discharged home. [place]
== END 2016-11-30 14:52 | disposition home or self-care (01) ==
LOC: ER 14:31 → IN 16:08
PROVIDERS: ADMIT Family Medicine; ATTEND Family Medicine
DX: R07.89 Other chest pain (principal); I10 Essential (primary) hypertension; R94.31 Abnormal electrocardiogram [ECG] [EKG]; J45.20 Mild intermittent asthma, uncomplicated; I44.7 Left bundle-branch block, unspecified; F32.89 Other specified depressive episodes; G47.00 Insomnia, unspecified; Z98.84 Bariatric surgery status; Z85.828 Personal history of other malignant neoplasm of skin; M54.2 Cervicalgia; G89.29 Other chronic pain; D75.1 Secondary polycythemia; Z79.899 Other long term (current) drug therapy
CPT/HCPCS: 36415; 71010; 80048; 80053; 80061; 83735; 84443; 84484; 85025; 93005; 93041; 93306; 96372; 99285; G0378; J1650; J7611